=== PATIENT | female | born 1950 | race Caucasian/White ===

== ENCOUNTER 2020-12-06 12:34 | Emergency (ER) | payer MEDICARE, OTHER, SELFPAY ==
[2020-12-06 12:52] VITALS: BP 153/65; PULSE 59; RESP 17; O2SAT 97; BMI 30.9
--- NOTE | 2020-12-06 13:44 | HMH.EDUTC ---
[facility] [place] Clinical Impression: Skin abscess Qualifiers: Site of cutaneous abscess: unspecified site Qualified Code(s): L02.91 - Cutaneous abscess, unspecified Disposition: Home, Self-Care Condition on Discharge: Good Instructions: DI for Boils, Boil, Cephalexin, Mupirocin Additional Instructions: *Start antibiotic(s) immediately and be sure to take as ordered for the FULL length of time although you may be feeling better or start to see improvement in the next 24-48 hours *Monitor closely. Outlined redness so that you can monitor easier. Follow up immediately for new or worsening symptoms including but not limited to redness, swelling, streaking from site fever or chills. *Warm compress 15 minutes 3-4 times day *Never squeeze or pop these on your own. Seek immediate medical attention next time this occurs *Monitor Temp. Tylenol every 4 hours as needed and ibuprofen every 6 hours as needed (as long as your primary care doctor has told you that it is ok to take both. For fever, aches, pain. ER if no less that 101 despite Tylenol and ibuprofen Follow up with your family doctor/primary care physician in the next 48-72 hours if no improvement Topical medication to area as advised Culture was obtained from wound make sure to follow up with your Family Doctor to make sure that you are on the proper medication Prescriptions: cephALEXin [cephALEXin 500mg capsule*] 500 mg PO Q8H 7 Days #21 cap [facility]: [id number] Mupirocin Calcium [Mupirocin 2% Cream 15gm] 1 applicatio TP TID 10 Days #15 gm Transmission Status: Pending to [id number] Referrals: Provider,Referral, [Primary Care Provider] - As needed Time of Disposition: 14:18 Medical Decision Making - Gus Inquiry Pt receiving controlled substance: No Gus was queried for this patient: No Vital Signs: 12/06/20 12:52 12/06/20 13:45 Temperature 98.6 F Temperature Source Oral Oral Pulse Rate [Right Radial] 59 L 64 Respiratory Rate 17 21 Blood Pressure [Right Arm] 153/65 H 144/69 H Blood Pressure Mean [Right Arm] 94 94 Blood Pressure Source [Right Arm] Automatic Cuff Automatic Cuff Blood Pressure Position [Right Arm] Supine Sitting 02 Sat by Pulse Oximetry 97 98 Oxygen Delivery Method Room Air Room Air Orders (Tests/Meds): ORDERS Category Date Time Status Wound Culture and Gram Stain Stat Micro 12/06/20 14:24 Ordered [facility] [place] HPI - General Stated complaint: possible spider bite Time Seen by Provider: 12/06/20 13:45 Mode of Arrival: Ambulatory Source of Information: Patient Limitations: No Limitations Description of Symptoms (Recalled from Triage Doc. by RN): Pt stated that yesterday she woke up with her having a sore spot on her groin. As the day went on she said that it got progressively worse. She looked and it was red with a black spot. She woke up today and it hurt more and stated that it has gotten bigger. - History of Present Illness Provider Complaint: Patient states that she thinks she may have been bitten by spider States that she had area in her groin area that - Related Data Home Medications Medication Instructions Recorded Confirmed Propranolol HCl 40 mg PO BID 12/06/20 12/06/20 Previous Rx's Medication Instructions Recorded Mupirocin Calcium [Mupirocin 2% 1 applicatio TP TID 10 Days #15 gm 12/06/20 Cream 15gm] cephALEXin [cephALEXin 500mg 500 mg PO Q8H 7 Days #21 cap 12/06/20 capsule*] Allergies Allergy/AdvReac Type Severity Reaction Status Date / Time No Known Allergies Allergy Verified 12/06/20 13:48 [facility] History - Hepatitis A Screen Attestation statement:: This patient has been screened for Hepatitis A risk factors. I have reviewed the patient's past medical history: Yes ROS Obtained: Yes All systems reviewed & no additional complaints, Yes Systems reviewed as appropriate & no additional complaints - Constitutional Constitutional: Reports system revie
[2020-12-06 13:45] VITALS: BP 144/69; PULSE 64; RESP 21; TEMP 37; O2SAT 98; BMI 30.4
[2020-12-06 14:27] VITALS: BP 144/69; PULSE 64; RESP 21; TEMP 37; O2SAT 98
== END 2020-12-06 14:30 | disposition home or self-care (01) ==
LOC: ER 12:49 → UTC 12:51
PROVIDERS: Emergency Provider Nurse Practitioner
DX: L02.214 Cutaneous abscess of groin (principal)
CPT/HCPCS: G0463; 87070; 87077; 87186; 87205; 99202